=== PATIENT | male | born 1945 | race Caucasian/White ===

== ENCOUNTER 2017-03-31 04:28 | Emergency (ER) | payer MEDICARE ==
[~2017-03-31] VITALS: Ht 177.8 cm; Wt 81.6 kg
[~2017-03-31 04:28] MED LIST: ASPI-605 PO; CARV3.12 PO; CINA60TA PO; FLUT16SP BNOSTRILS; FLUT1DIS28 IH; FOLI1TAB16 PO; INSU100C10 SQ; INSU100V7 SQ; LEVO137T24 PO; OMEP20CA10 PO; SEVE800T8 PO; SIMV40TA5 PO; TIOT18CA3 INH; VERA120C3 PO
--- NOTE | 2017-03-31 04:36 | NUR ---
PT BIBA, PT A/OX4 BREATHING EFFORTLESSLY ON ROOM AIR, PT WAS ALTERED PER EMS UPON ARRIVAL, PT HAD A LOW BS UPON ARRIVAL, PT WAS GIVEN 250ML OF D10 UPON ARRIVAL BY EMS, PT ON MONITOR, EKG DONE, IV PLACED PRIOR TO ARRIVAL, MD IN ROOM, WILL CONTINUE TO MONITOR
[2017-03-31 05:03] LABS: BASOPHILS % (AUTO) 0.8 % (0.0-2.0); EOSINOPHILS # (AUTO) 0.4 /CMM (0.0-0.7); EOSINOPHILS % (AUTO) 6.1 % (0.0-6.0); HEMATOCRIT 38 % (39-51); HEMOGLOBIN 12.4 g/dL (13.5-17.5); LYMPHOCYTES # (AUTO) 0.7 /CMM (0.8-4.8); LYMPHOCYTES % (AUTO) 12.3 % (20.0-44.0); MEAN CORPUSCULAR HEMOGLOBIN 34 PG (26.0-33.0); MEAN CORPUSCULAR HGB CONC 33 g/dl (31.0-36.0); MEAN CORPUSCULAR VOLUME 104 fL (80-96); MONOCYTES # (AUTO) 0.4 /CMM (0.1-1.30); MONOCYTES % (AUTO) 6.6 % (2.0-12.0); NEUTROPHILS # (AUTO) 4.5 /CMM (1.8-8.9); NEUTROPHILS % (AUTO) 74.2 % (43.0-81.0); PLATELET COUNT (AUTO) 233 /CMM (150-450); RDW COEFFICIENT OF VARIATION 16.1 (11.5-15.0); RED BLOOD CELL COUNT(AUTO) 3.68 MIL/uL (4.5-6.0)
[2017-03-31 05:14] LABS: CALCIUM, SERUM 7.8 mg/dL (8.5-10.1); CREATININE 5.5 mg/dL (0.6-1.3); POTASSIUM 5.4 mmol/L (3.5-5.1)
[2017-03-31 05:20] LABS: ALBUMIN 3.7 g/dL (3.4-5.0); BILIRUBIN,DIRECT 0.2 mg/dL (0.0-0.2); BILIRUBIN,TOTAL 0.5 mg/dL (0.2-1.0); TOTAL PROTEIN, SERUM 7.5 g/dL (6.4-8.2)
[2017-03-31 05:22] LABS: TROPONIN I 0.069 ng/mL (0.00-0.056)
[2017-03-31 05:23] LABS: INR 1.06 (0.87-1.13); PROTHROMBIN TIME 11.4 SECS (9.5-12.7)
--- NOTE | 2017-03-31 06:47 | NUR ---
Patient discharged to home in stable condition. Written and verbal after care instructions given. Patient verbalizes understanding of instruction.IV removed. Catheter intact and site benign. Pressure and 4x4 applied to site. No bleeding noted.
[2017-03-31 06:48] VITALS: BP 146/84
== END 2017-03-31 06:48 | disposition home or self-care (01) ==
LOC: ER 04:30
DX: E11.649 Type 2 diabetes mellitus with hypoglycemia without coma (principal); Z99.2 Dependence on renal dialysis; E87.5 Hyperkalemia; R94.31 Abnormal electrocardiogram [ECG] [EKG]; I12.0 Hypertensive chronic kidney disease with stage 5 chronic kidney disease or end stage renal disease; Z79.4 Long term (current) use of insulin; Z79.82 Long term (current) use of aspirin
CPT/HCPCS: 36415; 71010; 80048; 80076; 82962 ×2; 84484; 85025; 85730; 93005; 99285; A4606; Z7610

== ENCOUNTER 2017-07-19 15:33 | Inpatient (IN) | payer MEDICARE ==
[2017-07-18 20:00] VITALS: BP 174/79
[~2017-07-19] VITALS: Ht 175.3 cm; Wt 85.7 kg
--- NOTE | 2017-07-19 16:00 | NUR ---
BBRA FROM HOME; LOW BLOOD SUGAR AT 22. GIVEN D10 IN FIELD, BS 220 IN FIELD. IV ACCESS CATALOGUE AND SPECIAL PRODUCTS MANAGER. PT AAOX3. SEEN BY FOR EVAL. URINE SAMPLE OBTAINED. ELEVATED BP NOTED. SAFETY AND COMFORT MEASURES PROVIDED. WILL MONITOR.
[2017-07-19 16:08] LABS: BASOPHILS # (AUTO) 0.1 /CMM (0.0-0.2); BASOPHILS % (AUTO) 0.8 % (0.0-2.0); EOSINOPHILS # (AUTO) 0.5 /CMM (0.0-0.7); EOSINOPHILS % (AUTO) 6.6 % (0.0-6.0); HEMATOCRIT 36 % (39-51); HEMOGLOBIN 12.2 g/dL (13.5-17.5); LYMPHOCYTES # (AUTO) 1.1 /CMM (0.8-4.8); LYMPHOCYTES % (AUTO) 16.2 % (20.0-44.0); MEAN CORPUSCULAR HEMOGLOBIN 34 PG (26.0-33.0); MEAN CORPUSCULAR HGB CONC 34 g/dl (31.0-36.0); MEAN CORPUSCULAR VOLUME 100 fL (80-96); MONOCYTES # (AUTO) 0.5 /CMM (0.1-1.30); MONOCYTES % (AUTO) 7.7 % (2.0-12.0); NEUTROPHILS # (AUTO) 4.6 /CMM (1.8-8.9); NEUTROPHILS % (AUTO) 68.7 % (43.0-81.0); PLATELET COUNT (AUTO) 202 /CMM (150-450); RDW COEFFICIENT OF VARIATION 13.9 (11.5-15.0); RED BLOOD CELL COUNT(AUTO) 3.56 MIL/uL (4.5-6.0); WHITE BLOOD COUNT (AUTO) 6.8 K/uL (4.3-11.0)
[2017-07-19 16:23] LABS: ALANINE AMINOTRANSFERASE 29 U/L (12-78); ALBUMIN 3.9 g/dL (3.4-5.0); ALKALINE PHOSPHATASE 137 U/L (46-116); ASPARTATE AMINOTRANSFERASE 29 U/L (15-37); BILIRUBIN,DIRECT 0.2 mg/dL (0.0-0.2); BILIRUBIN,TOTAL 0.5 mg/dL (0.2-1.0); CALCIUM, SERUM 8.2 mg/dL (8.5-10.1); CARBON DIOXIDE 28 mmol/L (21-32); CHLORIDE 96 mmol/L (98-107); GLUCOSE 176 mg/dL (74-106); INR 1.06 (0.87-1.13); POTASSIUM 5.7 mmol/L (3.5-5.1); SODIUM SERUM 133 mmol/L (136-145)
[2017-07-19 16:24] LABS: UREA NITROGEN, BLOOD 90 mg/dL (7-18)
[2017-07-19 16:25] LABS: CREATININE 7.9 mg/dL (0.6-1.3)
--- NOTE | 2017-07-19 16:27 | NUR ---
PT TAKEN TO CT.
--- NOTE | 2017-07-19 16:54 | NUR ---
CALLED [facility], TRANSCRIBER WAS PAGED.
--- NOTE | 2017-07-19 17:04 | NUR ---
PATIENT WILL BE ADMITTED INTO [place] [id number].
--- NOTE | 2017-07-19 17:06 | NUR ---
Report given to LIVIA Valente Tele [phone] for GRISELDA
[2017-07-19] MEDS ORDERED: ALBUTEROL FS 2.5 MG/3 ML VIAL.NEB ONE (17:10)
[2017-07-19] MEDS ORDERED: ASPIRIN 81 MG TAB.CHEW PO ONE ×2 (17:30)
[2017-07-19] MEDS ORDERED: ALBUTEROL FS 2.5 MG/3 ML VIAL.NEB NEB ONE (17:30)
[2017-07-19] MEDS ORDERED: SODIUM POLYSTYRENE SULFONATE 15 G/60 ML BOTTLE PO ONE (17:30)
[2017-07-19] MEDS ORDERED: DEXTROSE 50%-WATER 50 ML DISP.SYRIN IV ONE (17:30)
[2017-07-19] MEDS ORDERED: INSULIN REGULAR, HUMAN 100 UNIT/ML 10 ML VIAL IV ONE (17:30)
[2017-07-19] MEDS ORDERED: LEVO25TA9 PO (17:46)
[2017-07-19] MEDS ORDERED: CARV6.252 PO (17:46)
[2017-07-19] MEDS ORDERED: LEVO300T6 PO (17:46)
[2017-07-19] MEDS ORDERED: FLUT1BLS IH (17:47)
[2017-07-19] MEDS ORDERED: INSU300I SQ (17:47)
--- NOTE | 2017-07-19 18:22 | NUR ---
PATIENT ARRIVED TO UNIT
[2017-07-19] MEDS ORDERED: CEFTRIAXONE 1 G VIAL IV SCH (18:30)
--- NOTE | 2017-07-19 19:59 | NUR ---
RN NOTE; RECEIVED PT IN BED AWAKE AND ALERT, BREATHING EVENLY. NO SOB.NAD DENIED ANY PAIN OR DISCOMFORT. NO S/S OF HYPO OR HYPERGLYCEMIA. NEEDS ATTENDED. WILL CONT TO MONITOR
[2017-07-19 20:00] VITALS: BP 174/79
[2017-07-19] MEDS ORDERED: CEFTRIAXONE 1 G in IV D5W 50 ML IV SCH (20:00)
--- NOTE | 2017-07-19 20:00 | NUR ---
RN ADMITTING / CLOSING NOTES PATIENT ARRIVED TO UNIT AT 1822. NO SIGNS AND SYMPTOMS OF DISTRESS. DENIED PAIN. ADMISSION INTERVENTION COMPLETED. PICTURE OF LEFT LEG SCAB WAS NOT TAKEN, ENDORSED TO SERVICE ORDER CLERK NURSE.
--- NOTE | 2017-07-19 20:00 | NUR ---
RN NOTE; RECEIVED REPORT FROM LIVIA POLANCO. RECEIVED PT IN BED AWAKE AND ALERT. BREATHING EVENLY. NO SOB, NAD. SKIN WARM AND DRY . NO S/S OF HYPO OR HYPERGLYCEMIA. SB ON TELE MONITOR. W/ SOME NON ADMINISTERED MEDS FROM THE ER MD AND ADMITTING DRRonit WILL CALL MD TO CLARIFY. NO C/O PAIN OR DISCOMFORT. NEEDS ATTENDED. CALL LIGHT WITHIN REACH, WILL CONT TO MONITOR,
[2017-07-19] MEDS ORDERED: SIMVASTATIN 10 MG TABLET ONE (20:28)
[2017-07-19] MEDS ORDERED: DEXTROSE 50%-WATER 50 ML DISP.SYRIN ONE ×2 (20:28→21:01)
[2017-07-19] MEDS ORDERED: CINACALCET HCL 30 MG TABLET ONE (20:29)
[2017-07-19] MEDS ORDERED: ASPIRIN 81 MG TAB.CHEW ONE (20:29)
--- NOTE | 2017-07-19 20:30 | NUR ---
CONTACTED YVETTE JOSHI CARBON FURNACE OPERATOR HELPER REGARDING ASA, KAYEXALATE , D50 AND INSULIN 1OU IV. CARBON FURNACE OPERATOR HELPER W/ A NEW ORDER TO GIVE THE ASA 162MG AND ALSO THE INSULIN IV AND THE D50 BUT HOLD ON TO THE KAYEXALATE SINCE THE PT HAS DX OF ESRD. WILL ADMINISTER THE MEDS AND WILL CONT TO MONITOR.
--- NOTE | 2017-07-19 20:31 | NUR ---
ALL OVERRODE MEDICATIONS GIVEN ORDERED SUCH ZOCOR, D50, INSULIN IV AND SENSIPAR. THE ONE TIME STOCK WAS NON ADMINISTERED TO PREVENT FURTHER CONFUSION AT THE [facility].
[2017-07-19] MEDS: VERAPAMIL SR 120 MG TABLET.SA PO SCH (20:38)
[2017-07-19] MEDS ORDERED: INSULIN REGULAR, HUMAN 100 UNIT/ML 3 ML VIAL ONE (20:54)
[2017-07-19] MEDS ORDERED: DEXTROSE 50%-WATER 50 ML DISP.SYRIN IV PRN (21:00)
[2017-07-19] MEDS: IPRATROPIUM NEB FS 0.5 MG/2.5 ML AMPUL.NEB NEB SCH (21:30)
--- NOTE | 2017-07-19 21:42 | NUR ---
RT NOTES: New admission. Pt on RA, vitals HR 65 RR 18 SPO2 94% No respiratory distress or SOB at this time. Next breathing treatment is scheduled at 01:30 RN is aware.
[2017-07-19] MEDS ORDERED: CINACALCET HCL 30 MG TABLET PO SCH (22:00)
[2017-07-19] MEDS ORDERED: SIMVASTATIN 40 MG TABLET PO SCH (22:00)
[2017-07-19] MEDS ORDERED: SIMVASTATIN 10 MG TABLET PO SCH (22:00)
[2017-07-19] MEDS: BLOOD SUGAR DIAGNOSTIC 1 EACH STRIP IN SCH (22:46)
[2017-07-19] MEDS: INSULIN REGULAR, HUMAN 100 UNIT/ML 3 ML VIAL SQ PRN (22:49)
--- NOTE | 2017-07-19 23:45 | NUR ---
READING ON HEART MONITOR W/ EPISODES OF JUNCTIONAL STAT ECG WAS OBTAINED NOTED W/ EPISODE OF A.FIB. DR. RANKIN MADE AWARE OF THE CHANGES, LAST BP: 156/66 AND HR:53. PT ALERT AND OX4 W/ NO C/O CHEST PAIN OR ANY ANY OTHER COMPLAIN. DR. RANKIN W/ A NEW ORDER TO TRANSFER PT TO TELE TD ([facility]) FOR CLOSE MONITORING. AND DRAW STAT BMP. LAB MADE AWARE. WILL CONT TO MONITOR . AND WILL PROCEED W/ THE TRANSFER.
[2017-07-20] VITALS: BP 158/68
[2017-07-20 00:19] LABS: CARBON DIOXIDE 26 mmol/L (21-32); CHLORIDE 96 mmol/L (98-107); GLUCOSE 332 mg/dL (74-106); POTASSIUM 5.5 mmol/L (3.5-5.1); SODIUM SERUM 134 mmol/L (136-145)
--- NOTE | 2017-07-20 00:20 | NUR ---
RN NOTE; PT WAS TRANSFERRED TO THE [facility] ROOM 119-2 UNDER ACLS PROTOCOL IN STABLE CONDITION.PT DENIED ANY PAIN OR DISCOMFORT. REPORT GIVEN TO THE RNGÓMEZ.
[2017-07-20 00:28] LABS: UREA NITROGEN, BLOOD 98 mg/dL (7-18)
[2017-07-20 00:29] LABS: CREATININE 8.1 mg/dL (0.6-1.3)
--- NOTE | 2017-07-20 00:29 | NUR ---
EMBROIDERY DESIGNER; RECEIVED TRANSFFERED PT FROM MARIA INES/MANAGER APPLIED UNIT DUE TO CARDIAC ARRHYTHMIA THAT IS AFIB AND JUNCTIONAL ON AND OFF PER PREVIOUS NURSE, DR RANKIN AWARE, STAT BMP ORDERED, AWAITING RESULTS, PATIENT DOES HAVE MEDICAL HX OF PAROXYSMAL AFIB, CABG, CAD ,ESRD ON DIALYSIS, DM-2. PT IS AAO X4, SEEMS VERY COMFORTABLE, NO DISTRESS, ABLE TO AMBULATES, DENIED CHEST PAIN. ON CANDY CATCHER READING 50-52 AFIB. STAT EKG WAS DONE EARLIER SHOWS AFIB. LEFT LOWER LEG SCAB NOTED, PICTURE TAKEN BY PREVIOUS NURSE. IV ACCESS LEFT UPPER ARM # 20, RIGHT FOREARM AV SHUNT, INTACT. ALL NEEDS ATTENDED. WILL FOLLOW UP LABS WITH MD SOON GET RESULTS. KEEP CLOSE MONITORING..
[2017-07-20 00:30] VITALS: BP 158/68
--- NOTE | 2017-07-20 00:43 | NUR ---
FREELANCE OPERATOR; DISCUSSED ALL LAB RESULTS WITH DR RANKIN, ASKED MD IF NEED TO ADD TROPONIN IN MORNING SAID" NO NEED IT WILL BE ELEVATE DUE TO DIALYSIS/ESRD". CLOSE OBSERVATION PER DR RANKIN. NOTIFIED BUN 98, CREATININE 7.9, PATIENT ON DIALYSIS. POTASSIUM LEVEL 5.4 TRENDING DOWN FROM PREVIOUS RESULT. PT COMFORTABLY SLEEPING, NO DISTRESS, KEEP CLOSE MONITORING..
[2017-07-20] MEDS: IPRATROPIUM NEB FS 0.5 MG/2.5 ML AMPUL.NEB NEB SCH ×3 (01:30→14:01)
[2017-07-20 04:00] VITALS: BP 133/57
--- NOTE | 2017-07-20 05:40 | NUR ---
PHYSICIAN COMPENSATION ANALYST: PT COMFORTABLY RESTING, CONTROLLED AFIB 45-50 ON MONITOR,BP STABLE. NO DISTRESS. DENIED CHEST PAIN. WILL ENDORSE CARE TO NEXT SHIFT.
[2017-07-20] MEDS ORDERED: LEVOTHYROXINE SODIUM 100 MCG TABLET PO SCH (07:30)
[2017-07-20 08:00] VITALS: BP 124/57
[2017-07-20] MEDS: BLOOD SUGAR DIAGNOSTIC 1 EACH STRIP IN SCH ×3 (08:10→17:19)
[2017-07-20] MEDS: SEVELAMER CARBONATE 800 MG TABLET PO SCH ×3 (08:10→17:19)
[2017-07-20] MEDS: INSULIN REGULAR, HUMAN 100 UNIT/ML 3 ML VIAL SQ PRN ×2 (08:11→12:18)
[2017-07-20] MEDS ORDERED: FLUTICASONE PROPIONATE 16 GM BOTTLE NS SCH (09:00)
[2017-07-20] MEDS: VERAPAMIL SR 120 MG TABLET.SA PO SCH ×2 (09:00→16:23)
[2017-07-20] MEDS ORDERED: TIOTROPIUM BROMIDE 6 CAP/BOX CAP.W.DEV IH SCH (09:00)
[2017-07-20] MEDS ORDERED: FLUTICASONE/SALMETEROL DISKUS IH SCH (09:00)
[2017-07-20] MEDS ORDERED: FLUTICASONE/VILANTEROL 1 EACH BLST.W.DEV IH SCH (09:00)
[2017-07-20] MEDS ORDERED: FOLIC ACID 1 MG TABLET PO SCH (09:00)
[2017-07-20] MEDS ORDERED: ASPIRIN EC 81 MG TABLET.DR PO SCH (09:00)
[2017-07-20] MEDS: CARVEDILOL 3.125 MG TABLET PO SCH ×2 (09:00→16:23)
--- NOTE | 2017-07-20 10:32 | NUR ---
[facility] RN NOTE 0720: Received patient awake, A/Ox4. No respiratory distress noted, tolerated room air. No c/o any discomfort at this time. Afib 40's on the monitor. Noted with K 5.5, patient said he just had BM recently, awaiting Nephro consult. MARTHA PIV intact. RFA AV shunt + bruit/thrill. No S/S hypo/hyperglycemia noted, latest BS 138. 0900: Held Coreg and Verapamil for low heart rate. 1030: No any significant changes.
[2017-07-20 12:00] VITALS: BP 99/63
--- NOTE | 2017-07-20 12:34 | NUR ---
[facility] RN NOTE 1210: S/E by dr. Aguero, with order for HD today. 1230: S/E by De TAMAYO. Patient made TURN OUT aware re: appt tomorrow and said she will do DC plannning today after HD. Will continue to monitor. Latest BS 206.
[2017-07-20 16:00] VITALS: BP 106/63
--- NOTE | 2017-07-20 17:28 | NUR ---
[facility] RN NOTE 1700: Done with HD, HD nurse reported 5L out. Patient tolerated. VSS. Latest BS 124. Discussed with patient re: DC instructions and to go to PCP in a week or earlier for follow up. Patient in stable condition. No any significant changes. 1720: Called for taxi. Patient is able to ambulate without assistance.
--- NOTE | 2017-07-20 17:35 | NUR ---
[facility] RN NOTE Removed PIV, no bleeding noted, applied pressure and dry dressing. Accompanied patient to the lobby.
== END 2017-07-20 17:36 | disposition home or self-care (01) | DRG 177 ==
LOC: ER 15:35 → TELE 17:52 → TELE-TD 07-20 00:22
PROVIDERS: ADMIT Nurse Practitioner Acute Care; ATTEND Nurse Practitioner Acute Care
PROC: 5A1D00Z (ICD-10-PCS; principal; 2017-07-20)
DX: J69.0 Pneumonitis due to inhalation of food and vomit (principal); I21.4 Non-ST elevation (NSTEMI) myocardial infarction; G93.41 Metabolic encephalopathy; I12.0 Hypertensive chronic kidney disease with stage 5 chronic kidney disease or end stage renal disease; N18.6 End stage renal disease; I48.0 Paroxysmal atrial fibrillation; E11.649 Type 2 diabetes mellitus with hypoglycemia without coma; E11.22 Type 2 diabetes mellitus with diabetic chronic kidney disease; D63.8 Anemia in other chronic diseases classified elsewhere; E87.5 Hyperkalemia; I25.10 Atherosclerotic heart disease of native coronary artery without angina pectoris; J44.9 Chronic obstructive pulmonary disease, unspecified; Z99.2 Dependence on renal dialysis; Z95.1 Presence of aortocoronary bypass graft
CPT/HCPCS: 36415; 70450-TC; 71010-TC; 80048-TC; 80076-TC; 82962-TC; 83605-TC; 84484-TC; 85025-TC; 85730-TC; 87040-TC; 87081-TC; 87086-TC; 90935-TC; A4606; J0696; J1815; J7050; J7060; Z7610